=== PATIENT | male | born 2000 | race Two or more races ===

== ENCOUNTER 2021-10-26 00:33 | Emergency (ER) | payer OTHER ==
[~2021-10-26] VITALS: Ht 175.3 cm; Wt 106.6 kg
[2021-10-26 01:09] VITALS: BP 127/80
--- NOTE | 2021-10-26 01:09 | NUR ---
BIBSELF C/O L EARPAIN & "CLOGGED EARS" X2 DAYS. TRAVELED TO [place] & CAME BACK 3 HRS AGO. PT A/OX4. PT TOLERATING R/A WELL WITH NO RESP DISTRESS. AMBULATORY WITH STEADY GAIT. SAFETY MEASURES IN PLACE.
--- NOTE | 2021-10-26 01:13 | NUR ---
DR. DE BEARD AT PT'S BEDSIDE FOR EAR EXAM
[2021-10-26] MEDS ORDERED: AZITHROMYCIN 250 MG TABLET ONE (01:22)
[2021-10-26] MEDS ORDERED: PSEUDOEPHEDRINE HCL 30 MG TABLET ONE (01:22)
[2021-10-26] MEDS ORDERED: AZIT250T PO (01:26)
[2021-10-26] MEDS ORDERED: [UNRECOGNIZED DRUG - CODE] PO (01:26)
[2021-10-26] MEDS ORDERED: NEOM10DR11 LEFT EAR (01:26)
[2021-10-26] MEDS ORDERED: AZITHROMYCIN 250 MG TABLET PO ONE (01:30)
[2021-10-26] MEDS ORDERED: PSEUDOEPHEDRINE HCL 30 MG TABLET PO ONE (01:30)
[2021-10-26] MEDS ORDERED: NEOM/POLY B SULF/HC OTIC SUSP 10 ML BOTTLE OT ONE (01:30)
--- NOTE | 2021-10-26 01:30 | NUR ---
Patient discharged to home in stable condition. Written and verbal after care instructions given. Patient verbalizes understanding of instruction.
== END 2021-10-26 01:32 | disposition home or self-care (01) ==
LOC: ER 00:43
DX: T70.0XXA Otitic barotrauma, initial encounter (principal); H66.92 Otitis media, unspecified, left ear; H60.92 Unspecified otitis externa, left ear; Z98.890 Other specified postprocedural states; Z88.0 Allergy status to penicillin; Z60.2 Problems related to living alone; X58.XXXA Exposure to other specified factors, initial encounter